=== PATIENT | female | born 1940 | race Caucasian/White ===

== ENCOUNTER 2019-02-26 20:26 | Inpatient (IN) | payer MEDICARE, BC ==
[~2019-02-26] VITALS: Ht 147.3 cm; Wt 103.0 kg
[2019-02-26] MEDS ORDERED: normal saline 1000ML IV soln IVB ONE (20:55)
[2019-02-26 21:01] LABS: CLARITY,URINE CLEAR (Clear); COLOR,URINE YELLOW (Yellow); GLUCOSE, URINE NEGATIVE (Neg); KETONES,URINE NEGATIVE (Neg); LEUKOCYTE ESTERASE ,URINE SMALL (Neg); NITRITES, URINE NEGATIVE (Neg); OCCULT BLOOD,URINE TRACE-INTACT (Neg); PH,URINE 5.5 (4.8-8.0); PROTEIN,URINE TRACE mg/dl (Neg); UROBILINOGEN,URINE 0.2 E.U/dL (0.2-1.0)
[2019-02-26 21:04] LABS: UA COLLECTION TYPE CLN CATCH MIDSTREAM
[2019-02-26 21:22] LABS: BACTERIA,URINE 1+ /HPF (Neg); RBC,URINE NONE SEEN /HPF (0-2); SQUAMOUS EPITHELIAL CELL,UR FEW /LPF (FEW); TRANSITIONAL EPI CELLS,URINE FEW /HPF
[2019-02-26 21:25] LABS: BASOPHILS % (AUTO) 0.2 % (0-1); EOSINOPHILS # (AUTO) 1.2 X10'3 (0-0.9); EOSINOPHILS % (AUTO) 12.8 % (0-6); HEMATOCRIT 36.6 % (35.0-45.0); HEMOGLOBIN 12.1 g/dl (12.0-16.0); LYMPHOCYTES # (AUTO) 0.8 X10'3 (1.1-4.8); LYMPHOCYTES % (AUTO) 8.4 % (21-51); MEAN CORPUSCULAR HEMOGLOBIN 32.1 PG (27.0-31.0); MEAN CORPUSCULAR HGB CONC 33.1 g/dL (33.0-36.5); MEAN CORPUSCULAR VOLUME 96.8 FL (78-98); MEAN PLATELET VOLUME 8.8 FL (7.4-10.4); MONOCYTES # (AUTO) 0.5 X10'3 (0-0.9); MONOCYTES % (AUTO) 5.3 % (2-12); NEUTROPHILS # (AUTO) 6.8 X10'3 (1.8-7.7); NEUTROPHILS % (AUTO) 73.3 % (42-75); PLATELET COUNT 230 X10'3 (140-440); RED BLOOD COUNT 3.78 X10'6 (4.20-5.60); WHITE BLOOD COUNT 9.2 X10'3 (4.5-11.0)
[2019-02-26 21:30] LABS: PARTIAL THROMBOPLASTIN TIME 36 SECONDS (22-32)
[2019-02-26 21:34] LABS: ALANINE AMINOTRANSFERASE 57 U/L (12-78); ALBUMIN 2.6 G/DL (3.4-5.0); ALBUMIN/GLOBULIN RATIO 0.8 (1.1-1.5); ALKALINE PHOSPHATASE 102 IU/L (46-116); ANION GAP 10 (8-16); ASPARTATE AMINO TRANSFERASE 32 U/L (10-37); BILIRUBIN,TOTAL 0.3 MG/DL (0.1-1.0); BLOOD UREA NITROGEN 68 MG/DL (7-18); BUN/CREATININE RATIO 19.3 (6.6-38.0); CALCIUM 7.8 MG/DL (8.5-10.1); CHLORIDE 99 MMOL/L (99-107); CREATININE 3.52 MG/DL (0.40-0.90); GLUCOSE 160 MG/DL (70-104); MAGNESIUM 2.2 MG/DL (1.5-2.4); POTASSIUM 4.4 MMOL/L (3.5-5.1); SODIUM 133 MMOL/L (135-145); TOTAL CARBON DIOXIDE 23.7 MMOL/L (24-32); TOTAL PROTEIN 5.9 G/DL (6.4-8.2); eGFR 13 ML/MIN
--- NOTE | 2019-02-26 22:00 | NUR ---
THOART CX SENT OBTAINED AND SENT TO LAB
--- NOTE | 2019-02-26 22:14 | NUR ---
pt requesting to use the restroom. she is a large woman and has difficulty getting in and out of bed without 2 person assist due to size and height (bed is too high even in the lowest position) - pt also getting SOB with transfer. Offered to assist patient out of bed or to try a wick cath - pt would like to try the cath. she is assisted in removing undergarmets and a dry flow is placed along with external cath which is hooked to suction.
[2019-02-26] MEDS ORDERED: magnesium hydroxide 30ml (MOM) UD suspension PO PRN (22:30)
[2019-02-26] MEDS ORDERED: HYDROcodone/acetaminophen 5mg/325mg tablet PO PRN (22:30)
[2019-02-26] MEDS ORDERED: ondansetron/PF 4mg/2ml inj IV PRN (22:30)
[2019-02-26] MEDS ORDERED: acetaminophen 325mg tablet PO PRN (22:30)
[2019-02-26] MEDS ORDERED: mag hydrox/Alum hydrox/simeth 30ml oral suspension PO PRN (22:30)
[2019-02-26] MEDS ORDERED: [UNRECOGNIZED DRUG - REMARK] (22:56)
[2019-02-26 23:50] VITALS: BP 126/31
[2019-02-27] MEDS: normal saline 1000ml 1,000 ML IV SCH ×4 (01:34→23:13)
[2019-02-27] MEDS ORDERED: diphenhydrAMINE 25mg capsule PO ONE (02:00)
[2019-02-27 06:00] VITALS: BP 113/37
--- NOTE | 2019-02-27 06:30 | NUR ---
Gave report to Marcy HERNANDEZ.
[2019-02-27 07:00] LABS: BASOPHILS % (AUTO) 0.1 % (0-1); EOSINOPHILS % (AUTO) 14.2 % (0-6); HEMATOCRIT 35.6 % (35.0-45.0); HEMOGLOBIN 11.8 g/dl (12.0-16.0); LYMPHOCYTES # (AUTO) 0.8 X10'3 (1.1-4.8); LYMPHOCYTES % (AUTO) 11.1 % (21-51); MEAN CORPUSCULAR HEMOGLOBIN 32.2 PG (27.0-31.0); MEAN CORPUSCULAR HGB CONC 33.1 g/dL (33.0-36.5); MEAN CORPUSCULAR VOLUME 97.3 FL (78-98); MEAN PLATELET VOLUME 8.7 FL (7.4-10.4); MONOCYTES # (AUTO) 0.5 X10'3 (0-0.9); MONOCYTES % (AUTO) 7.3 % (2-12); NEUTROPHILS # (AUTO) 4.8 X10'3 (1.8-7.7); NEUTROPHILS % (AUTO) 67.3 % (42-75); PLATELET COUNT 216 X10'3 (140-440); RED BLOOD COUNT 3.66 X10'6 (4.20-5.60); RED CELL DISTRIBUTION WIDTH 13.1 % (11.5-14.5); WHITE BLOOD COUNT 7.1 X10'3 (4.5-11.0)
[2019-02-27 07:01] LABS: ALBUMIN 2.2 G/DL (3.4-5.0); ANION GAP 11 (8-16); BLOOD UREA NITROGEN 67 MG/DL (7-18); BUN/CREATININE RATIO 21.2 (6.6-38.0); CALCIUM 7.8 MG/DL (8.5-10.1); CHLORIDE 107 MMOL/L (99-107); CREATININE 3.16 MG/DL (0.40-0.90); GLUCOSE 85 MG/DL (70-104); POTASSIUM 4.1 MMOL/L (3.5-5.1); SODIUM 138 MMOL/L (135-145); TOTAL CARBON DIOXIDE 20.5 MMOL/L (24-32); eGFR 14 ML/MIN
[2019-02-27 07:30] LABS: HEMOGLOBIN A1C 6.2 % (4.5-6.2)
[2019-02-27] MEDS ORDERED: enoxaparin 30mg/0.3ml syringe SUBCUT SCH (08:00)
[2019-02-27] MEDS ORDERED: GLIP5TAB13 PO (10:44)
[2019-02-27] MEDS ORDERED: ASCO500C15 PO (10:44)
[2019-02-27] MEDS ORDERED: UBID10CA4 PO (10:44)
[2019-02-27] MEDS ORDERED: MULT1TAB74 PO (10:44)
[2019-02-27] MEDS ORDERED: IPRA4AER INH (10:44)
[2019-02-27] MEDS ORDERED: CHOL400T14 PO (10:44)
[2019-02-27] MEDS ORDERED: IRBE150T27 PO (10:44)
[2019-02-27] MEDS ORDERED: ZIN220C PO (10:45)
--- NOTE | 2019-02-27 11:42 | NUR ---
PAGER ID: [phone] MESSAGE: Marcy Jermaine9 re Cora Coppola in [id number]- she is complaining of sore throat, back of throat is red, can we order lozenges for her?
[2019-02-27 13:34] LABS: SODIUM,URINE RANDOM 19 MEQ/L; TOTAL PROTEIN,URINE RANDOM 26.3 MG/DL; URINE AMPHETAMINE SCREEN NEGATIVE (Neg); URINE BARBITUATE SCREEN NEGATIVE (Neg); URINE BENZODIAZEPINES SCREEN NEGATIVE (Neg); URINE CANNABINOID SCREEN NEGATIVE (Neg); URINE COCAINE SCREEN NEGATIVE (Neg); URINE METHADONE SCREEN NEGATIVE (Neg); URINE OPIATE SCREEN NEGATIVE (Neg); URINE PHENCYCLIDINE SCREEN NEGATIVE (Neg)
--- NOTE | 2019-02-27 16:47 | NUR ---
PAGER ID: [phone] MESSAGE: Marcy Jermaine9 gretchen Alstonmanayony Shepherd in [id number]- no US available from nick Roberts? Also, can we have something for mouth/throat pain, and pls address med rec. Thank you!
[2019-02-27 17:00] VITALS: BP 154/56
--- NOTE | 2019-02-27 19:12 | NUR ---
Patient in room [facility] 4014. I have received report from Marcy Jimenez Rn and had the opportunity to ask questions and assume patient care. Addendum: 02/27/19 at 1912 by Meseret Wolfe RN Amended: Links added.
[2019-02-27] MEDS: benzocaine/menthol oral lozeng 1 EACH BOX MM PRN (19:32)
--- NOTE | 2019-02-27 19:50 | NUR ---
pt given throat lozenger for c/o sore throat.
--- NOTE | 2019-02-27 21:20 | NUR ---
pt ambulated with hand spring former to brp the requested due to pain and decreased mobility to use wicc for night use. pt set up for this.
[2019-02-27 22:00] VITALS: BP 176/50
[2019-02-27] MEDS: amox tr/potassium clavulanate 500mg/125mg TAB PO SCH (23:03)
--- NOTE | 2019-02-27 23:17 | NUR ---
TOOK PO AUGMENTIN TOLERATED WELL.
--- NOTE | 2019-02-28 00:32 | NUR ---
resting eyes closed without s&s of distress at this time.
--- NOTE | 2019-02-28 02:03 | NUR ---
pt resting without changes.
[2019-02-28] MEDS: benzocaine/menthol oral lozeng 1 EACH BOX MM PRN ×2 (02:55→09:13)
--- NOTE | 2019-02-28 03:20 | NUR ---
pt given sips of water when woke up. c/o sore throat.
--- NOTE | 2019-02-28 05:00 | NUR ---
pt awoke and had 800cc out with wicc. wicc repoved and pt aware needs to have us help her up during day to void and ambulate to brp.
[2019-02-28 06:00] VITALS: BP 140/37
[2019-02-28 06:03] LABS: BASOPHILS % (AUTO) 0.4 % (0-1); EOSINOPHILS % (AUTO) 15.7 % (0-6); HEMATOCRIT 35.8 % (35.0-45.0); HEMOGLOBIN 11.8 g/dl (12.0-16.0); LYMPHOCYTES # (AUTO) 1.3 X10'3 (1.1-4.8); LYMPHOCYTES % (AUTO) 19.6 % (21-51); MEAN CORPUSCULAR HEMOGLOBIN 32.3 PG (27.0-31.0); MEAN CORPUSCULAR HGB CONC 32.9 g/dL (33.0-36.5); MEAN PLATELET VOLUME 8.1 FL (7.4-10.4); MONOCYTES # (AUTO) 0.7 X10'3 (0-0.9); NEUTROPHILS # (AUTO) 3.6 X10'3 (1.8-7.7); NEUTROPHILS % (AUTO) 54.3 % (42-75); PLATELET COUNT 237 X10'3 (140-440); RED BLOOD COUNT 3.65 X10'6 (4.20-5.60); RED CELL DISTRIBUTION WIDTH 13.2 % (11.5-14.5); WHITE BLOOD COUNT 6.6 X10'3 (4.5-11.0)
--- NOTE | 2019-02-28 06:10 | NUR ---
Problems reprioritized. Patient report given, questions answered & plan of care reviewed with MARLENE HERNANDEZ. Addendum: 02/28/19 at 0611 by Meseret Wolfe RN Amended: Links added.
[2019-02-28 06:12] LABS: ALBUMIN 2.3 G/DL (3.4-5.0); ANION GAP 9 (8-16); BLOOD UREA NITROGEN 61 MG/DL (7-18); BUN/CREATININE RATIO 20.9 (6.6-38.0); CALCIUM 7.9 MG/DL (8.5-10.1); CHLORIDE 113 MMOL/L (99-107); CREATININE 2.92 MG/DL (0.40-0.90); GLUCOSE 111 MG/DL (70-104); POTASSIUM 4.4 MMOL/L (3.5-5.1); SODIUM 145 MMOL/L (135-145); TOTAL CARBON DIOXIDE 22.8 MMOL/L (24-32); eGFR 16 ML/MIN
[2019-02-28] MEDS: heparin, porcine 5000 units/ml vial SQ SCH ×3 (08:00→19:57)
[2019-02-28] MEDS: amox tr/potassium clavulanate 500mg/125mg TAB PO SCH ×2 (09:13→17:07)
[2019-02-28] MEDS: acetaminophen 325mg tablet PO PRN (09:14)
[2019-02-28] MEDS: normal saline 1000ml 1,000 ML IV SCH ×2 (09:22→19:55)
[2019-02-28 10:00] VITALS: BP 143/50
[2019-02-28] MEDS ORDERED: glucagon, human recombinant 1mg kit SUBCUT PRN (11:45)
[2019-02-28] MEDS ORDERED: MESSAGE TO PHARMACY PO ONE (11:45)
[2019-02-28] MEDS ORDERED: dextrose ORAL solution 15 GM/59 ML bottle PO PRN ×2 (11:45)
[2019-02-28] MEDS ORDERED: LIDOcaine Viscous 15ml cup MM PRN (11:45)
[2019-02-28] MEDS ORDERED: insulin Lispro (HumaLOG) vial - multi-dose SQ SCH (11:45)
[2019-02-28] MEDS ORDERED: dextrose 50%-water 50ml dispensing syringe IV PRN ×2 (11:45)
[2019-02-28] MEDS ORDERED: ipratropium/albuterol 3ml nebule IH PRN (11:55)
[2019-02-28] MEDS: nystatin 500,000 unit/5ML UD oral suspension PO SCH ×2 (17:07→21:21)
[2019-02-28 18:00] VITALS: BP 162/76
--- NOTE | 2019-02-28 18:10 | NUR ---
Patient in room [facility] 4014. I have received report from Marcy HERNANDEZ and had the opportunity to ask questions and assume patient care.
[2019-02-28] MEDS: lactobacillus rhamnosus 10,000 MMU CELLS/CAPSULE PO SCH (19:53)
[2019-02-28] MEDS: insulin glargine (Lantus) pen - multi-dose SQ SCH (21:00)
[2019-02-28 22:00] VITALS: BP 171/59
[2019-02-28] MEDS ORDERED: amLODIPine 5mg tablet PO ONE (22:40)
[2019-02-28 23:17] VITALS: BP 158/47
--- NOTE | 2019-02-28 23:26 | NUR ---
pt refusing to take amlodipine. states her blood pressure "is not that high" at 158/44. educated pt about blood pressure and uncontrolled blood pressure. 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 charge nurse aware. will make day shift nurse aware and will continue to monitor.
[2019-03-01] MEDS: acetaminophen 325mg tablet PO PRN (03:38)
[2019-03-01] MEDS: benzocaine/menthol oral lozeng 1 EACH BOX MM PRN (03:58)
[2019-03-01 06:00] VITALS: BP 155/47
--- NOTE | 2019-03-01 06:40 | NUR ---
Problems reprioritized. Patient report given, questions answered & plan of care reviewed with Leann HERNANDEZ.
[2019-03-01 07:03] LABS: BASOPHILS % (AUTO) 0.5 % (0-1); EOSINOPHILS % (AUTO) 11.5 % (0-6); HEMATOCRIT 35.7 % (35.0-45.0); HEMOGLOBIN 11.6 g/dl (12.0-16.0); LYMPHOCYTES # (AUTO) 2.1 X10'3 (1.1-4.8); LYMPHOCYTES % (AUTO) 23.8 % (21-51); MEAN CORPUSCULAR HGB CONC 32.4 g/dL (33.0-36.5); MEAN CORPUSCULAR VOLUME 98.6 FL (78-98); MEAN PLATELET VOLUME 7.9 FL (7.4-10.4); MONOCYTES # (AUTO) 0.9 X10'3 (0-0.9); MONOCYTES % (AUTO) 9.6 % (2-12); NEUTROPHILS # (AUTO) 4.9 X10'3 (1.8-7.7); NEUTROPHILS % (AUTO) 54.6 % (42-75); PLATELET COUNT 255 X10'3 (140-440); RED BLOOD COUNT 3.62 X10'6 (4.20-5.60); RED CELL DISTRIBUTION WIDTH 13.7 % (11.5-14.5)
[2019-03-01 07:21] LABS: ALBUMIN 2.4 G/DL (3.4-5.0); ANION GAP 10 (8-16); BLOOD UREA NITROGEN 53 MG/DL (7-18); BUN/CREATININE RATIO 21.8 (6.6-38.0); CALCIUM 8.2 MG/DL (8.5-10.1); CHLORIDE 116 MMOL/L (99-107); CREATININE 2.43 MG/DL (0.40-0.90); GLUCOSE 120 MG/DL (70-104); POTASSIUM 4.8 MMOL/L (3.5-5.1); SODIUM 147 MMOL/L (135-145); TOTAL CARBON DIOXIDE 20.6 MMOL/L (24-32); eGFR 19 ML/MIN
[2019-03-01] MEDS: heparin, porcine 5000 units/ml vial SQ SCH ×2 (08:00→20:00)
[2019-03-01] MEDS ORDERED: amLODIPine 5mg tablet PO SCH (08:00)
[2019-03-01] MEDS: lactobacillus rhamnosus 10,000 MMU CELLS/CAPSULE PO SCH ×2 (09:08→20:24)
[2019-03-01] MEDS: ascorbic acid 500mg tablet PO SCH (09:09)
[2019-03-01] MEDS: nystatin 500,000 unit/5ML UD oral suspension PO SCH ×3 (09:09→20:24)
[2019-03-01] MEDS: multivitamins, therapeutics tablet PO SCH (09:09)
[2019-03-01] MEDS: cholecalciferol (vitamin D) 400 unit tablet PO SCH (09:09)
[2019-03-01] MEDS: amox tr/potassium clavulanate 500mg/125mg TAB PO SCH ×2 (09:10→17:39)
[2019-03-01 10:00] VITALS: BP 131/65
[2019-03-01] MEDS ORDERED: amLODIPine 5mg tablet PO ONE (10:25)
[2019-03-01] MEDS: normal saline 1000ml 1,000 ML IV SCH (10:26)
--- NOTE | 2019-03-01 13:45 | NUR ---
Paged [facility] to complete Doppler Study ordered by SHAE Veliz. Requested return phone call to inform what time Doppler study would be done. Did not receive return phone call. Second page sent at 0195. No return phone call return done. Informed SHAE Veliz at approximately 1850 that Doppler study had not been completed as ordered.
[2019-03-01 18:00] VITALS: BP 148/55
[2019-03-01] MEDS: insulin glargine (Lantus) pen - multi-dose SQ SCH (21:00)
--- NOTE | 2019-03-01 21:44 | NUR ---
[facility] paged again regarding order for Doppler study of BLE. Request made via page for call back with [facility].
[2019-03-01 22:00] VITALS: BP 165/45
--- NOTE | 2019-03-01 22:35 | NUR ---
Via nursing supervisor remelt [facility] called back to inform nursing they would be in. They unfortunately did not receive our earlier pages.
[2019-03-02] MEDS: benzocaine/menthol oral lozeng 1 EACH BOX MM PRN (02:45)
[2019-03-02 05:35] LABS: BASOPHILS % (AUTO) 0.4 % (0-1); EOSINOPHILS # (AUTO) 0.9 X10'3 (0-0.9); EOSINOPHILS % (AUTO) 9.2 % (0-6); HEMATOCRIT 34.4 % (35.0-45.0); HEMOGLOBIN 11.2 g/dl (12.0-16.0); LYMPHOCYTES # (AUTO) 2.2 X10'3 (1.1-4.8); LYMPHOCYTES % (AUTO) 21.2 % (21-51); MEAN CORPUSCULAR HEMOGLOBIN 32.2 PG (27.0-31.0); MEAN CORPUSCULAR HGB CONC 32.7 g/dL (33.0-36.5); MEAN CORPUSCULAR VOLUME 98.3 FL (78-98); MEAN PLATELET VOLUME 7.7 FL (7.4-10.4); MONOCYTES # (AUTO) 0.9 X10'3 (0-0.9); MONOCYTES % (AUTO) 9.3 % (2-12); NEUTROPHILS # (AUTO) 6.1 X10'3 (1.8-7.7); NEUTROPHILS % (AUTO) 59.9 % (42-75); PLATELET COUNT 274 X10'3 (140-440); RED BLOOD COUNT 3.49 X10'6 (4.20-5.60); RED CELL DISTRIBUTION WIDTH 13.4 % (11.5-14.5); WHITE BLOOD COUNT 10.2 X10'3 (4.5-11.0)
[2019-03-02 05:40] LABS: ALBUMIN 2.5 G/DL (3.4-5.0); ANION GAP 7 (8-16); BLOOD UREA NITROGEN 44 MG/DL (7-18); BUN/CREATININE RATIO 20.6 (6.6-38.0); CALCIUM 8.3 MG/DL (8.5-10.1); CHLORIDE 115 MMOL/L (99-107); CREATININE 2.14 MG/DL (0.40-0.90); GLUCOSE 122 MG/DL (70-104); POTASSIUM 4.7 MMOL/L (3.5-5.1); SODIUM 145 MMOL/L (135-145); TOTAL CARBON DIOXIDE 23.3 MMOL/L (24-32); eGFR 22 ML/MIN
[2019-03-02 05:59] LABS: RHEUM FACTOR QUAL REFLEX TITER NEGATIVE (Neg)
[2019-03-02 06:00] VITALS: BP 157/50
[2019-03-02] MEDS: heparin, porcine 5000 units/ml vial SQ SCH (08:00)
[2019-03-02] MEDS ORDERED: amLODIPine 5mg tablet PO SCH (08:00)
[2019-03-02] MEDS: multivitamins, therapeutics tablet PO SCH (09:31)
[2019-03-02] MEDS: nystatin 500,000 unit/5ML UD oral suspension PO SCH ×2 (09:31→14:37)
[2019-03-02] MEDS: lactobacillus rhamnosus 10,000 MMU CELLS/CAPSULE PO SCH (09:31)
[2019-03-02] MEDS: amox tr/potassium clavulanate 500mg/125mg TAB PO SCH ×2 (09:32→17:17)
[2019-03-02] MEDS: cholecalciferol (vitamin D) 400 unit tablet PO SCH (09:32)
[2019-03-02] MEDS: ascorbic acid 500mg tablet PO SCH (09:32)
[2019-03-02 10:00] VITALS: BP 187/65
[2019-03-02] MEDS ORDERED: NOR5T PO (11:53)
[2019-03-02] MEDS ORDERED: AMOX1TAB15 PO (11:53)
[2019-03-02] MEDS ORDERED: LACT1CAP26 PO (11:53)
--- NOTE | 2019-03-02 17:55 | NUR ---
Received discharge orders from Dr. Mathias. Medications called into [facility] in [place]. IV dc'd from [facility] with cannula intact. No redness/swelling at IV site. Reviewed discharge orders and pt signed discharge form. Pts daughter and arrived to transport pt back to [place] at 1755. Pt discharged via w/c to private vehicle.
[2019-03-03 05:20] LABS: HBSAG SCREEN Negative (Negative); HEPATITIS C ANTIBODY <0.1 s/co ratio (0.0-0.9); RPR Non Reactive (Non Reactive)
[2019-03-03 11:17] LABS: ALBUMIN 2.6 g/dL (2.9-4.4); BETA GLOBULIN 0.7 g/dL (0.7-1.3); GAMMA GLOBULIN 0.8 g/dL (0.4-1.8); GLOBULIN, TOTAL 2.5 g/dL (2.2-3.9); M-SPIKE 0.4 g/dL (Not Observed); PROTEIN, TOTAL, SERUM 5.1 g/dL (6.0-8.5)
[2019-03-04 08:11] LABS: COMPLEMENT C3, SERUM 127 mg/dL (82-167); COMPLEMENT C4, SERUM 33 mg/dL (14-44)
[2019-03-05 13:18] LABS: ANTINUCLEAR ANTIBODIES Negative (Negative)
== END 2019-03-02 17:15 | disposition home or self-care (01) | DRG 683 ==
LOC: ER 20:26 → ORTHO 4S 23:49
PROVIDERS: ADMIT Hospitalist; ATTEND Family Medicine
DX: N17.0 Acute kidney failure with tubular necrosis (principal); Z68.42 Body mass index [BMI] 45.0-49.9, adult; E87.0 Hyperosmolality and hypernatremia; E87.1 Hypo-osmolality and hyponatremia; N10 Acute pyelonephritis; I12.9 Hypertensive chronic kidney disease with stage 1 through stage 4 chronic kidney disease, or unspecified chronic kidney disease; E11.22 Type 2 diabetes mellitus with diabetic chronic kidney disease; N28.1 Cyst of kidney, acquired; E66.01 Morbid (severe) obesity due to excess calories; G89.29 Other chronic pain; Z60.2 Problems related to living alone; J45.909 Unspecified asthma, uncomplicated; N18.9 Chronic kidney disease, unspecified; T36.1X5A Adverse effect of cephalosporins and other beta-lactam antibiotics, initial encounter; J02.9 Acute pharyngitis, unspecified; M54.9 Dorsalgia, unspecified; R21 Rash and other nonspecific skin eruption; Z79.84 Long term (current) use of oral hypoglycemic drugs; Y92.89 Other specified places as the place of occurrence of the external cause; Z90.49 Acquired absence of other specified parts of digestive tract; Z98.51 Tubal ligation status; Z79.899 Other long term (current) drug therapy
CPT/HCPCS: 36415; 71045; 74176; 76775; 80048; 80053; 80305; 81001; 82570; 82948; 83036; 83605; 83735; 84145; 84155; 84156; 84165; 84300; 85025; 85610; 85730; 86038; 86160; 86430; 86592; 86803; 87040; 87081; 87088; 87207; 87340; 87880; 93005; 93306; 93970; 94760; 96360; 99285; G0378; J1644; J1650; J1815; J7030; Q0163